=== PATIENT | male | born 1950 | race African-American/Black ===

== ENCOUNTER 2023-02-08 19:01 | Emergency (ER) | payer OTHER ==
[2023-02-08] MEDS ORDERED: KETOROLAC 30 MG/ML INJ ONE (20:42)
--- NOTE | 2023-02-08 21:45 | RAD REPORT ---
EXAM DESCRIPTION: RAD - Foot Left 3 View - 02/08/2023 9:39 pm CLINICAL HISTORY: DEFORMITY COMPARISON: No comparisons FINDINGS: Diffuse osteopenia. Moderate plantar calcaneal spur. Oblique fracture proximal phalanx of the great toe.
--- NOTE | 2023-02-08 22:52 | ER ---
Nurse's Notes [facility] Name: Oziel Wade Age: 72 yrs Sex: Male : 1950 Arrival Date: 02/08/2023 Time: 19:01 Bed 13 Private MD: Diagnosis: Displaced fracture of distal phalanx of left great toe Presentation: 02/08 20:07 Chief complaint: Patient states: hit foot left foot against chair last night but the lg3 pain is getting unbearable and now its swollen. Coronavirus screen: Client denies travel out of the [place] in the last 14 days. At this time, the client does not indicate any symptoms associated with coronavirus-19. Ebola Screen: No symptoms or risks identified at this time. Initial Sepsis Screen: Does the patient meet any 2 criteria? No. Patient's initial sepsis screen is negative. Does the patient have a suspected source of infection? No. Patient's initial sepsis screen is negative. Risk Assessment: Do you want to hurt yourself or someone else? Patient reports no desire to harm self or others. Onset of symptoms was February 07, 2023. 20:07 Method Of Arrival: Wheelchair lg3 20:07 Acuity: MAYTE 4 lg3 Triage Assessment: 20:09 General: Appears in no apparent distress. comfortable, Behavior is calm, cooperative. lg3 Pain: Complains of pain in left foot. EENT: No deficits noted. No signs and/or symptoms were reported regarding the EENT system. Neuro: No deficits noted. Vo Agitation-Sedation Scale (RASS): 0 - Alert and Calm Level of Consciousness is awake, alert, obeys commands, Oriented to person, place, time, situation. Cardiovascular: No deficits noted. Denies chest pain, shortness of breath. Respiratory: No deficits noted. Airway is patent Respiratory effort is even, unlabored, Respiratory pattern is regular, symmetrical. GI: No deficits noted. No signs and/or symptoms were reported involving the gastrointestinal system. : No deficits noted. No signs and/or symptoms were reported regarding the genitourinary system. Derm: No deficits noted. No signs and/or symptoms reported regarding the dermatologic system. Skin is intact, is healthy with good turgor, Skin is dry, Skin is normal, Skin temperature is warm. Musculoskeletal: No deficits noted. Historical: - Allergies: 20:09 No Known Allergies; lg3 - Home Meds: 20:09 Unable to obtain [Active]; lg3 - PMHx: 20:09 HTN; emphysema; chirrosis; lg3 - Immunization history:: Adult Immunizations up to date, Client reports receiving the 2nd dose of the Covid vaccine. - Social history:: Smoking status: Patient reports the use of cigarette tobacco products, smokes one-half pack cigarettes per day, Patient/guardian denies using alcohol, street drugs. Screenin:15 [facility] ED Fall Risk Assessment (Adult) Score/Fall Risk Level 0 - 2 = Low Risk. Abuse eh3 screen: Denies threats or abuse. Denies injuries from another. Nutritional screening: No deficits noted. Tuberculosis screening: No symptoms or risk factors identified. Assessment: 20:15 General: Appears in no apparent distress. uncomfortable, Behavior is calm, cooperative, eh3 appropriate for age. Pain: Complains of pain in left foot. Neuro: Level of Consciousness is awake, alert, obeys commands, Oriented to person, place, time, situation. Cardiovascular: Capillary refill < 3 seconds Patient's skin is warm and dry. Respiratory: Airway is patent Respiratory effort is even, unlabored, Respiratory pattern is regular, symmetrical. GI: Abdomen is round non-distended. : No signs and/or symptoms were reported regarding the genitourinary system. EENT: No signs and/or symptoms were reported regarding the EENT system. Derm: Skin is pink, warm \T\ dry. Musculoskeletal: Circulation, motion, and sensation intact. Swelling present in left foot. 21:15 Reassessment: Patient appears in no apparent distress at this time. Patient and/or 3 family updated on plan of care and expected duration. Pain level reassessed. Patient is alert, oriented x 3, equal unlabored respirations, skin warm/dry/pink. 22:34 Reassessment: Patient appears in no apparent distress at this time. No changes from lg3 previously documented assessment. Patient and/or family updated on plan of care and expected duration. Pain level reassessed. Patient is alert, oriented x 3, equal unlabored respirations, skin warm/dry/pink. Vital Signs: 20:07 BP 173 / 75; Pulse 70; Resp 16 S; Temp 98.2(TE); Pulse Ox 97% on R/A; Weight 95.25 kg lg3 (R); Height 6 ft. 2 in. (R); 21:15 BP 165 / 70; Pulse 66; Resp 16; Pulse Ox 100% on R/A; eh3 22:34 BP 154 / 72; Pulse 68; Resp 17 S; Pulse Ox 100% on R/A; lg3 20:07 Body Mass Index 26.96 (95.25 kg, 187.96 cm) lg3 ED Course: 19:10 Patient arrived in ED. ts1 20:09 Triage completed. lg3 20:09 Arm band placed on left wrist. lg3 20:14 Nirav Leonard MD is Attending Physician. bs3 20:15 Stacy Urena RN is Primary Nurse. eh3 20:15 Patient has correct armband on for positive identification. Bed in low position. Call 3 light in reach. Side rails up X2. Adult w/ patient. 21:39 Foot Left 3 View In Process Unspecified. EDMS 23:12 No provider procedures requiring assistance completed. Patient did not have IV access lg3 during this emergency room visit. Administered Medications: 20:45 Drug: Ketorolac IM 30 mg Route: IM; Site: right deltoid; eh3 22:34 Follow up: Response: No adverse reaction lg3 Medication: 23:13 VIS not applicable for this client. lg3 Outcome: 22:52 Discharge ordered by . bs3 23:12 Discharged to home via wheelchair. lg3 23:12 Condition: stable 23:12 Discharge instructions given to patient, business center representative, Instructed on discharge instructions, follow up and referral plans. Demonstrated understanding of instructions, follow-up care. 23:13 Patient left the ED. lg3 Signatures: Dispatcher [employer] EDMS Kayla Coyne RN RN lg3 Stacy Urena, ANDREW RN eh3 Nirav Leonard MD MD bs3 Hina Woods PAS PAS ts1 Corrections: (The following items were deleted from the chart) 21:13 20:32 Stacy Urena RN is Primary Nurse. eh3 eh3
--- NOTE | 2023-02-08 22:52 | EDPHYS ---
Physician Documentation [facility] Name: Oziel Wade Age: 72 yrs Sex: Male : 1950 Arrival Date: 02/08/2023 Time: 19:01 Bed 13 Private MD: ED Physician Nirav Leonard HPI: 02/08 21:23 This 72 yrs old Black Male presents to ER via Wheelchair with complaints of Foot Pain. bs3 21:23 Patient states that he was going to the bathroom last night and bumped his foot since bs3 then he has had moderate pain he denies any other injuries denies chest pain shortness of breath or anything else bothering him, pain worse with palpation, no fever chills, redness or anything else bothering him. Historical: - Allergies: 20:09 No Known Allergies; lg3 - Home Meds: 20:09 Unable to obtain [Active]; lg3 - PMHx: 20:09 HTN; emphysema; chirrosis; lg3 - Immunization history:: Adult Immunizations up to date, Client reports receiving the 2nd dose of the Covid vaccine. - Social history:: Smoking status: Patient reports the use of cigarette tobacco products, smokes one-half pack cigarettes per day, Patient/guardian denies using alcohol, street drugs. ROS: 21:23 Constitutional: Negative for fever, chills bs3 21:23 All other systems are negative. Exam: 21:23 Constitutional: This is a well developed, well nourished patient who is awake, alert, bs3 and in no acute distress. Eyes: Pupils equal round and reactive to light, extra-ocular motions intact. Lids and lashes normal. Chest/axilla: Normal chest wall appearance and motion. Nontender with no deformity. No lesions are appreciated. Respiratory: Lungs have equal breath sounds bilaterally, clear to auscultation, no respiratory distress Skin: Warm, dry with normal turgor. Normal color with no rashes, no lesions, and no evidence of cellulitis. MS/ Extremity: diffuse tenderness over distal aspects of 2-4 toes. no bruising, no ecchymosis, no redness, there is very poor hygeine on his foot Neuro: Awake and alert, GCS 15, oriented to person, place, time, and situation. Cranial nerves II-XII grossly intact. Motor strength 5/5 in all extremities. Sensory grossly intact. Psych: Awake, alert, with orientation to person, place and time. Behavior, mood, and affect are within normal limits. Vital Signs: 20:07 BP 173 / 75; Pulse 70; Resp 16 S; Temp 98.2(TE); Pulse Ox 97% on R/A; Weight 95.25 kg lg3 (R); Height 6 ft. 2 in. (R); 21:15 BP 165 / 70; Pulse 66; Resp 16; Pulse Ox 100% on R/A; eh3 22:34 BP 154 / 72; Pulse 68; Resp 17 S; Pulse Ox 100% on R/A; lg3 20:07 Body Mass Index 26.96 (95.25 kg, 187.96 cm) lg3 MDM: 20:14 Patient medically screened. bs3 21:23 Differential diagnosis: doubt cellulitis based on hx/pe, will r/o fx, advised podiatry bs3 as an outpatient for cleaning and care. Data reviewed: vital signs, nurses notes. 22:22 Independent interpretation of the following test(s) in the Emergency Department X-Ray: bs3 My interpretation is fracture of first toe. ED course: advised hard sole shoe, podiatry f/u. 22:51 ED course: xr consistent with fx as interpreted by myself and radiology, hard sole bs3 shoe, outpatient podiatry f/u rec. 02/08 21:39 Order name: Foot Left 3 View; Complete Time: 22:22 EDMS 02/08 22:23 Order name: Post-op Orthopedic Shoe; Complete Time: 22:44 bs3 Administered Medications: 20:45 Drug: Ketorolac IM 30 mg Route: IM; Site: right deltoid; eh3 22:34 Follow up: Response: No adverse reaction lg3 Disposition Summary: 02/08/23 22:52 Discharge Ordered Location: Home bs3 Problem: new bs3 Symptoms: have improved bs3 Condition: Stable bs3 Diagnosis - Displaced fracture of distal phalanx of left great toe bs3 Followup: bs3 - With: Private Physician - When: 5 - 6 days - Reason: Re-evaluation by your physician Discharge Instructions: - Discharge Summary Sheet bs3 - Toe Fracture, [id number] bs3 Forms: - Medication Reconciliation Form bs3 - Thank You Letter bs3 Signatures: Dispatcher [employer] Kayla Andujar, RN RN lg3 Stacy Urena RN RN eh3 Nirav Leonard MD MD bs3 Corrections: (The following items were deleted from the chart) 21:39 20:26 Foot Right 3 View+[email or web address] ordered. EDMS EDMS
[2023-02-08 23:42] VITALS: TEMP 98.2
[2023-02-08 23:44] VITALS: O2SAT 100
[2023-02-08 23:46] VITALS: BP 154/72
== END 2023-02-08 23:13 | disposition home or self-care (01) ==
LOC: ER 19:01
DX: S92.422A Displaced fracture of distal phalanx of left great toe, initial encounter for closed fracture (principal)